=== PATIENT | male | born 1945 | race Caucasian/White ===

== ENCOUNTER 2020-06-13 15:20 | Inpatient (IN) ==
[2020-06-13] MEDS ORDERED: Ondansetron 4 MG/2 ML VIAL IVP PRN (18:44)
[2020-06-13] MEDS ORDERED: *HR* Promethazine 25 MG/ML VIAL IVP PRN (18:44)
[2020-06-13] MEDS ORDERED: Naloxone 0.4 MG/ML INJ IVP PRN (18:44)
[2020-06-13] MEDS ORDERED: 0.9 % Sodium Chloride 1,000 ML IVC SCH (18:45)
[2020-06-13] MEDS ORDERED: *HR* HYDROmorphone PF 0.5 MG/0.5 ML SYRINGE IVP PRN (19:28)
[2020-06-13 20:26] LABS: Prothrombin Time 11.4 Seconds (9.4-12.1)
[2020-06-13 20:35] LABS: Basophils % 0.2 %; Hematocrit 37.7 % (37.5-50.1); Hemoglobin 12.3 g/dL (12.9-16.9); Immature Granulocytes % 1.1 % (0-4); Lymphocytes # 0.6 K/mcL (0.6-4.6); Lymphocytes % 5.7 %; Mean Corpuscular HGB Conc 32.6 g/dL (31.6-35.5); Mean Corpuscular Hemoglobin 30.8 pg (28.0-33.3); Mean Corpuscular Volume 94.3 fL (83.0-100.0); Mean Platelet Volume 11.6 fL (9.4-12.4); Monocytes # 0.8 K/mcL (0.0-1.3); Monocytes % 7.3 %; Neutrophils # 9.4 K/mcL (1.6-8.9); Platelet Count 121 K/mcL (140-400); Red Cell Distribution Width 15.5 % (11.5-14.5); Segmented Neutrophils % 85.7 %
[2020-06-13 20:52] LABS: Alanine Aminotransferase 90 Units/L (7-52); Albumin 3.6 g/dL (3.5-5.7); Alkaline Phosphatase 345 Units/L (34-104); Aspartate Amino Transferase 84 Units/L (13-39); BUN/Creatinine Ratio 17 (6-26); Blood Urea Nitrogen 58 mg/dL (8-23); Calcium 9.3 mg/dL (8.6-10.3); Carbon Dioxide 21 mEq/L (23-29); Chloride 97 mEq/L (98-107); Chol/HDL Ratio 3.3 (0-4.9); Cholesterol 111 mg/dL (< 200); Ethanol < 10 mg/dL (Less than 10); Globulin 3.5 g/dL (2.4-3.5); Glucose 78 mg/dL (70-105); HDL Cholesterol 34 mg/dL (40-59); LDL Cholesterol,Calculated 56 mg/dL (< 100); Magnesium 1.9 mg/dL (1.6-2.6); Osmolality,Calculated 289 (280-300); Potassium 4.4 mEq/L (3.5-5.1); Sodium 132 mEq/L (136-145); Total Protein 7.1 g/dL (6.4-8.9); Triglycerides 104 mg/dL (< 150); Troponin I 0.13 ng/mL (< 0.04); eGFR For African Americans 21 (> 60); eGFR For Non-African Americans 18 (> 60)
[2020-06-13] MEDS: carvediloL 25 MG TABLET PO SCH (22:32)
[2020-06-14 03:28] LABS: Basophils % 0.1 %; Eosinophils % 0.2 %; Hematocrit 35.4 % (37.5-50.1); Hemoglobin 11.5 g/dL (12.9-16.9); Immature Granulocytes % 1.1 % (0-4); Lymphocytes # 0.8 K/mcL (0.6-4.6); Lymphocytes % 7.9 %; Mean Corpuscular HGB Conc 32.5 g/dL (31.6-35.5); Mean Corpuscular Hemoglobin 30.8 pg (28.0-33.3); Mean Corpuscular Volume 94.9 fL (83.0-100.0); Mean Platelet Volume 11.5 fL (9.4-12.4); Monocytes # 0.7 K/mcL (0.0-1.3); Monocytes % 6.5 %; Neutrophils # 8.4 K/mcL (1.6-8.9); Platelet Count 127 K/mcL (140-400); Red Blood Count 3.73 M/mcL (4.19-5.50); Red Cell Distribution Width 15.7 % (11.5-14.5); Segmented Neutrophils % 84.2 %
[2020-06-14 03:46] LABS: Calcium 9.3 mg/dL (8.6-10.3); Potassium 4.5 mEq/L (3.5-5.1)
[2020-06-14 03:49] LABS: Albumin 3.4 g/dL (3.5-5.7); Bilirubin,Direct 1.7 mg/dL (0.0-0.2); Bilirubin,Indirect 1.3 mg/dL (0.0-1.0); Globulin 3.5 g/dL (2.4-3.5); Total Protein 6.9 g/dL (6.4-8.9)
[2020-06-14] MEDS: *HR* Heparin 5,000 UNIT/ML VIAL SQ SCH ×2 (06:07→19:17)
[2020-06-14] MEDS: calcitrioL 0.25 MCG CAPSULE PO SCH (08:20)
[2020-06-14] MEDS: allopurinoL 100 MG TABLET PO SCH (08:21)
[2020-06-14] MEDS: carvediloL 25 MG TABLET PO SCH ×2 (08:21→20:25)
[2020-06-14] MEDS: Cholecalciferol (D-3) 1,000 UNIT (25MCG) TABLET PO SCH ×2 (08:21→08:39)
[2020-06-14] MEDS: Aspirin 81 MG TAB.CHEW PO SCH (08:21)
[2020-06-14] MEDS: 0.9 % Sodium Chloride 1,000 ML IVC SCH (11:37)
[2020-06-14 19:47] LABS: Hematocrit 34.2 % (37.5-50.1); Mean Corpuscular HGB Conc 32.2 g/dL (31.6-35.5); Mean Corpuscular Hemoglobin 30.7 pg (28.0-33.3); Mean Corpuscular Volume 95.5 fL (83.0-100.0); Mean Platelet Volume 11.4 fL (9.4-12.4); Platelet Count 132 K/mcL (140-400); Red Blood Count 3.58 M/mcL (4.19-5.50); Red Cell Distribution Width 15.6 % (11.5-14.5); White Blood Count 11.5 K/mcL (4.3-11.1)
[2020-06-15 00:26] LABS: Amorphous Sediment,Urine Few per hpf (None-Few); Bacteria,Urine Few per hpf (None-Few); Bilirubin,Urine Small (Negative); Blood,Urine Negative (Negative); Clarity,Urine Turbid (Clear); Color,Urine Yellow (Yellow); Glucose,Urine (UA) Normal (Normal); Hyaline Casts,Urine Few per lpf (None Seen); Ketones,Urine Negative (Negative); Leukocyte Esterase,Urine Negative (Negative); Mucus,Urine Few per lpf (None-Few); Nitrite,Urine Negative (Negative); PH,Urine 5.5 pH Units (5.0-8.0); Protein,Urine 30 mg/dL (Neg-Trace); Specific Gravity,Urine 1.019 (1.010-1.025); Squamous Epithelial Cell,Urine Few per hpf (None-Few)
[2020-06-15] MEDS: *HR* Heparin 5,000 UNIT/ML VIAL SQ SCH ×2 (05:46→18:56)
[2020-06-15 07:09] LABS: Calcium 8.8 mg/dL (8.6-10.3); Potassium 4.7 mEq/L (3.5-5.1)
[2020-06-15] MEDS: Aspirin 81 MG TAB.CHEW PO SCH (08:27)
[2020-06-15] MEDS: carvediloL 25 MG TABLET PO SCH ×2 (08:28→16:04)
[2020-06-15] MEDS: allopurinoL 100 MG TABLET PO SCH (08:28)
[2020-06-15] MEDS: Cholecalciferol (D-3) 1,000 UNIT (25MCG) TABLET PO SCH (08:35)
[2020-06-15] MEDS: 0.9 % Sodium Chloride 1,000 ML IVC SCH (08:35)
[2020-06-15] MEDS: calcitrioL 0.25 MCG CAPSULE PO SCH (08:46)
[2020-06-15 13:45] LABS: Sodium, Urine 17.5 mEq/L
[2020-06-15] MEDS ORDERED: Ipratropium/Albuterol Neb 3 ML IH PRN (14:50)
[2020-06-15 16:15] LABS: Hematocrit 33.4 % (37.5-50.1); Hemoglobin 10.7 g/dL (12.9-16.9); Mean Corpuscular Volume 96.8 fL (83.0-100.0); Mean Platelet Volume 11.4 fL (9.4-12.4); Platelet Count 133 K/mcL (140-400); Red Blood Count 3.45 M/mcL (4.19-5.50); Red Cell Distribution Width 15.6 % (11.5-14.5)
[2020-06-15] MEDS: Levalbuterol Neb 1.25 MG/3 ML IH SCH ×2 (20:26→23:04)
[2020-06-16] MEDS: 0.9 % Sodium Chloride 1,000 ML IVC SCH ×2 (00:35→12:41)
[2020-06-16] MEDS: Levalbuterol Neb 1.25 MG/3 ML IH SCH ×5 (03:26→20:23)
[2020-06-16] MEDS: *HR* Heparin 5,000 UNIT/ML VIAL SQ SCH ×2 (05:44→20:22)
[2020-06-16 06:53] LABS: Hematocrit 32.5 % (37.5-50.1); Hemoglobin 10.6 g/dL (12.9-16.9); Mean Corpuscular HGB Conc 32.6 g/dL (31.6-35.5); Mean Corpuscular Hemoglobin 30.6 pg (28.0-33.3); Mean Corpuscular Volume 93.9 fL (83.0-100.0); Mean Platelet Volume 11.8 fL (9.4-12.4); Platelet Count 141 K/mcL (140-400); Red Blood Count 3.46 M/mcL (4.19-5.50); Red Cell Distribution Width 15.4 % (11.5-14.5); White Blood Count 10.1 K/mcL (4.3-11.1)
[2020-06-16 07:07] LABS: Calcium 8.6 mg/dL (8.6-10.3); Potassium 4.6 mEq/L (3.5-5.1)
[2020-06-16] MEDS ORDERED: Perflutren Lipid Microsphere 1.3 ML in 0.9 % Sodium Chloride 8.7 ML IVP PRN (11:08)
[2020-06-16] MEDS: Cholecalciferol (D-3) 1,000 UNIT (25MCG) TABLET PO SCH (11:56)
[2020-06-16] MEDS: Aspirin 81 MG TAB.CHEW PO SCH (11:56)
[2020-06-16] MEDS: Sennosides/Docusate Sodium TABLET PO SCH (11:57)
[2020-06-16] MEDS: calcitrioL 0.25 MCG CAPSULE PO SCH (11:57)
[2020-06-16] MEDS: carvediloL 25 MG TABLET PO SCH ×2 (11:57→18:11)
[2020-06-16] MEDS: allopurinoL 100 MG TABLET PO SCH (12:24)
[2020-06-16] MEDS ORDERED: 0.9 % Sodium Chloride 1,000 ML IVC SCH (12:45)
[2020-06-16] MEDS ORDERED: Sodium Bicarbonate 75 MEQ in 0.45 % Sodium Chloride 1,000 ML IVC SCH (13:45)
[2020-06-16 15:04] LABS: Basophils % 0.2 %; Eosinophils # 0.2 K/mcL (0.0-0.6); Eosinophils % 1.5 %; Hematocrit 34.7 % (37.5-50.1); Hemoglobin 10.9 g/dL (12.9-16.9); Lymphocytes # 0.9 K/mcL (0.6-4.6); Lymphocytes % 8.6 %; Mean Corpuscular HGB Conc 31.4 g/dL (31.6-35.5); Mean Corpuscular Hemoglobin 30.1 pg (28.0-33.3); Mean Corpuscular Volume 95.9 fL (83.0-100.0); Mean Platelet Volume 11.9 fL (9.4-12.4); Monocytes # 0.6 K/mcL (0.0-1.3); Monocytes % 5.9 %; Neutrophils # 8.4 K/mcL (1.6-8.9); Platelet Count 136 K/mcL (140-400); Red Blood Count 3.62 M/mcL (4.19-5.50); Red Cell Distribution Width 15.3 % (11.5-14.5); Segmented Neutrophils % 82.8 %; White Blood Count 10.1 K/mcL (4.3-11.1)
[2020-06-16 15:11] LABS: INR 1.1; Prothrombin Time 12.1 Seconds (9.4-12.1)
[2020-06-16 15:27] LABS: Albumin 3.4 g/dL (3.5-5.7); Bilirubin,Direct 1.4 mg/dL (0.0-0.2); Bilirubin,Indirect 1.4 mg/dL (0.0-1.0); Bilirubin,Total 2.8 mg/dL (0.3-1.0); Globulin 3.5 g/dL (2.4-3.5); Total Protein 6.9 g/dL (6.4-8.9)
[2020-06-16] MEDS: Piperacillin/Tazobactam 3.375 GM in 0.9 % Sodium Chloride Mini Bag 100 ML IVPB SCH (20:21)
[2020-06-16 22:50] LABS: Protein/Creatinine Ratio,Urine 0.23 mg/mg (0.00-0.20)
[2020-06-16 22:51] LABS: Sodium, Urine 15.3 mEq/L
[2020-06-16] MEDS ORDERED: Benzonatate 100 MG CAPSULE PO PRN (23:30)
[2020-06-16] MEDS ORDERED: Melatonin 3 MG TABLET PO PRN (23:30)
[2020-06-17] MEDS: Levalbuterol Neb 1.25 MG/3 ML IH SCH ×7 (00:28→23:59)
[2020-06-17] MEDS: *HR* Heparin 5,000 UNIT/ML VIAL SQ SCH ×3 (05:22→19:59)
[2020-06-17] MEDS: Piperacillin/Tazobactam 3.375 GM in 0.9 % Sodium Chloride Mini Bag 100 ML IVPB SCH ×2 (05:23→16:29)
[2020-06-17 05:52] LABS: Hematocrit 31.7 % (37.5-50.1); Hemoglobin 10.4 g/dL (12.9-16.9); Mean Corpuscular HGB Conc 32.8 g/dL (31.6-35.5); Mean Corpuscular Hemoglobin 31.1 pg (28.0-33.3); Mean Corpuscular Volume 94.9 fL (83.0-100.0); Mean Platelet Volume 11.2 fL (9.4-12.4); Platelet Count 164 K/mcL (140-400); Red Blood Count 3.34 M/mcL (4.19-5.50); Red Cell Distribution Width 15.2 % (11.5-14.5); White Blood Count 12.7 K/mcL (4.3-11.1)
[2020-06-17 06:16] LABS: Calcium 8.7 mg/dL (8.6-10.3); Potassium 4.7 mEq/L (3.5-5.1)
[2020-06-17 06:36] LABS: Folate 10.4 ng/mL (3.0-16.0)
[2020-06-17 06:37] LABS: Vitamin B12 462 pg/mL (250-1100)
[2020-06-17 07:10] LABS: Hepatitis B Surface Antigen Nonreactive (Nonreactive)
[2020-06-17 07:39] LABS: Hepatitis A Antibody IgM Nonreactive (Nonreactive); Hepatitis B Core IgM Nonreactive (Nonreactive); Hepatitis C Virus Antibody Nonreactive (Nonreactive)
[2020-06-17] MEDS: Cholecalciferol (D-3) 1,000 UNIT (25MCG) TABLET PO SCH (07:57)
[2020-06-17] MEDS: Sennosides/Docusate Sodium TABLET PO SCH (07:57)
[2020-06-17] MEDS: Aspirin 81 MG TAB.CHEW PO SCH (07:57)
[2020-06-17] MEDS: allopurinoL 100 MG TABLET PO SCH (07:57)
[2020-06-17] MEDS: carvediloL 25 MG TABLET PO SCH ×2 (07:57→16:29)
[2020-06-17] MEDS ORDERED: methylPREDNISolone 125 MG/2 ML VIAL IVP ONE (10:39)
[2020-06-18] MEDS: Levalbuterol Neb 1.25 MG/3 ML IH SCH ×6 (03:43→23:59)
[2020-06-18] MEDS: Piperacillin/Tazobactam 3.375 GM in 0.9 % Sodium Chloride Mini Bag 100 ML IVPB SCH ×2 (05:16→16:39)
[2020-06-18] MEDS: *HR* Heparin 5,000 UNIT/ML VIAL SQ SCH ×3 (05:17→20:50)
[2020-06-18 05:45] LABS: Hematocrit 30.7 % (37.5-50.1); Hemoglobin 10.2 g/dL (12.9-16.9); Mean Corpuscular HGB Conc 33.2 g/dL (31.6-35.5); Mean Corpuscular Hemoglobin 31.1 pg (28.0-33.3); Mean Corpuscular Volume 93.6 fL (83.0-100.0); Mean Platelet Volume 11.1 fL (9.4-12.4); Platelet Count 161 K/mcL (140-400); Red Blood Count 3.28 M/mcL (4.19-5.50); White Blood Count 8.5 K/mcL (4.3-11.1)
[2020-06-18 05:50] LABS: INR 1.1; Prothrombin Time 12.8 Seconds (9.4-12.1)
[2020-06-18 06:05] LABS: Albumin 3.1 g/dL (3.5-5.7); Albumin/Globulin Ratio 0.9 (1.1-2.2); Bilirubin,Total 1.8 mg/dL (0.3-1.0); Calcium 8.7 mg/dL (8.6-10.3); Globulin 3.6 g/dL (2.4-3.5); Potassium 5.2 mEq/L (3.5-5.1); Total Protein 6.7 g/dL (6.4-8.9)
[2020-06-18] MEDS: Sennosides/Docusate Sodium TABLET PO SCH (08:13)
[2020-06-18] MEDS: Cholecalciferol (D-3) 1,000 UNIT (25MCG) TABLET PO SCH (08:13)
[2020-06-18] MEDS: Aspirin 81 MG TAB.CHEW PO SCH (08:13)
[2020-06-18] MEDS: allopurinoL 100 MG TABLET PO SCH (08:13)
[2020-06-18] MEDS: carvediloL 25 MG TABLET PO SCH ×2 (08:13→16:39)
[2020-06-19] MEDS: Levalbuterol Neb 1.25 MG/3 ML IH SCH ×6 (03:40→23:06)
[2020-06-19 04:52] LABS: Hematocrit 30.8 % (37.5-50.1); Hemoglobin 9.9 g/dL (12.9-16.9); Mean Corpuscular HGB Conc 32.1 g/dL (31.6-35.5); Mean Corpuscular Volume 93.3 fL (83.0-100.0); Mean Platelet Volume 10.6 fL (9.4-12.4); Platelet Count 192 K/mcL (140-400); Red Cell Distribution Width 15.4 % (11.5-14.5); White Blood Count 11.9 K/mcL (4.3-11.1)
[2020-06-19 04:56] LABS: Prothrombin Time 11.8 Seconds (9.4-12.1)
[2020-06-19 05:09] LABS: Albumin/Globulin Ratio 0.9 (1.1-2.2); Bilirubin,Total 1.5 mg/dL (0.3-1.0); Calcium 8.6 mg/dL (8.6-10.3); Globulin 3.3 g/dL (2.4-3.5); Potassium 5.7 mEq/L (3.5-5.1); Total Protein 6.3 g/dL (6.4-8.9)
[2020-06-19] MEDS ORDERED: Piperacillin/Tazobactam 3.375 GM VIAL ONE (06:15)
[2020-06-19] MEDS: Piperacillin/Tazobactam 3.375 GM in 0.9 % Sodium Chloride Mini Bag 100 ML IVPB SCH ×2 (06:17→17:59)
[2020-06-19] MEDS: *HR* Heparin 5,000 UNIT/ML VIAL SQ SCH ×3 (06:17→22:37)
[2020-06-19] MEDS ORDERED: 0.9 % Sodium Chloride 250 ML IVC PRN (07:33)
[2020-06-19] MEDS ORDERED: 0.9 % Sodium Chloride 1,000 ML PRIME SCH (07:45)
[2020-06-19] MEDS: Sennosides/Docusate Sodium TABLET PO SCH (08:13)
[2020-06-19] MEDS: carvediloL 25 MG TABLET PO SCH ×2 (08:13→17:59)
[2020-06-19] MEDS: Aspirin 81 MG TAB.CHEW PO SCH (08:14)
[2020-06-19] MEDS: allopurinoL 100 MG TABLET PO SCH (08:14)
[2020-06-19] MEDS: Cholecalciferol (D-3) 1,000 UNIT (25MCG) TABLET PO SCH (08:19)
[2020-06-19] MEDS: calcitrioL 0.25 MCG CAPSULE PO SCH (08:20)
[2020-06-19] MEDS ORDERED: Lidocaine/EPI 1:100k 1% 50 ML VIAL ONE (10:06)
[2020-06-19] MEDS ORDERED: Heparin 1,000 UNITS/500 mL 500 ML ONE (10:06)
[2020-06-19] MEDS ORDERED: *HR* Heparin 5,000 UNIT/ML VIAL ONE (10:36)
[2020-06-19] MEDS ORDERED: *HR* Heparin 10,000 UNIT/10 ML VIAL IV PRN (11:19)
[2020-06-19 11:38] LABS: Phosphorous 5.4 mg/dL (2.7-4.5)
[2020-06-20] MEDS: Levalbuterol Neb 1.25 MG/3 ML IH SCH ×6 (03:16→23:15)
[2020-06-20] MEDS: *HR* Heparin 5,000 UNIT/ML VIAL SQ SCH ×3 (05:59→22:07)
[2020-06-20] MEDS: Piperacillin/Tazobactam 3.375 GM in 0.9 % Sodium Chloride Mini Bag 100 ML IVPB SCH ×2 (05:59→16:59)
[2020-06-20 06:11] LABS: Hemoglobin 10.3 g/dL (12.9-16.9); Mean Corpuscular HGB Conc 32.2 g/dL (31.6-35.5); Mean Corpuscular Hemoglobin 30.5 pg (28.0-33.3); Mean Corpuscular Volume 94.7 fL (83.0-100.0); Mean Platelet Volume 10.6 fL (9.4-12.4); Platelet Count 218 K/mcL (140-400); Red Blood Count 3.38 M/mcL (4.19-5.50); Red Cell Distribution Width 15.8 % (11.5-14.5)
[2020-06-20 06:13] LABS: INR 1.1; Prothrombin Time 12.3 Seconds (9.4-12.1)
[2020-06-20 06:32] LABS: Albumin/Globulin Ratio 0.9 (1.1-2.2); Bilirubin,Total 1.5 mg/dL (0.3-1.0); Calcium 8.6 mg/dL (8.6-10.3); Globulin 3.2 g/dL (2.4-3.5); Potassium 5.2 mEq/L (3.5-5.1); Total Protein 6.2 g/dL (6.4-8.9)
[2020-06-20] MEDS ORDERED: 0.9 % Sodium Chloride 250 ML IVC PRN (07:25)
[2020-06-20] MEDS: Cholecalciferol (D-3) 1,000 UNIT (25MCG) TABLET PO SCH (08:13)
[2020-06-20] MEDS: carvediloL 25 MG TABLET PO SCH ×2 (08:13→16:59)
[2020-06-20] MEDS: allopurinoL 100 MG TABLET PO SCH (08:13)
[2020-06-20] MEDS: Aspirin 81 MG TAB.CHEW PO SCH (08:13)
[2020-06-21] MEDS: Levalbuterol Neb 1.25 MG/3 ML IH SCH ×5 (03:25→20:59)
[2020-06-21] MEDS: Piperacillin/Tazobactam 3.375 GM in 0.9 % Sodium Chloride Mini Bag 100 ML IVPB SCH ×2 (06:26→17:22)
[2020-06-21] MEDS: *HR* Heparin 5,000 UNIT/ML VIAL SQ SCH ×3 (06:27→21:01)
[2020-06-21 06:58] LABS: Hematocrit 30.9 % (37.5-50.1); Mean Corpuscular HGB Conc 32.4 g/dL (31.6-35.5); Mean Corpuscular Hemoglobin 30.5 pg (28.0-33.3); Mean Corpuscular Volume 94.2 fL (83.0-100.0); Mean Platelet Volume 10.4 fL (9.4-12.4); Platelet Count 189 K/mcL (140-400); Red Blood Count 3.28 M/mcL (4.19-5.50); Red Cell Distribution Width 15.9 % (11.5-14.5); White Blood Count 14.4 K/mcL (4.3-11.1)
[2020-06-21 07:15] LABS: Calcium 8.6 mg/dL (8.6-10.3); Potassium 4.5 mEq/L (3.5-5.1)
[2020-06-21] MEDS: carvediloL 25 MG TABLET PO SCH ×2 (07:49→17:22)
[2020-06-21] MEDS: allopurinoL 100 MG TABLET PO SCH (07:49)
[2020-06-21] MEDS: Aspirin 81 MG TAB.CHEW PO SCH (07:49)
[2020-06-21] MEDS: Cholecalciferol (D-3) 1,000 UNIT (25MCG) TABLET PO SCH (07:49)
[2020-06-21] MEDS: calcitrioL 0.25 MCG CAPSULE PO SCH (07:50)
[2020-06-21 09:37] LABS: Magnesium 1.8 mg/dL (1.6-2.6); Phosphorous 2.9 mg/dL (2.7-4.5)
[2020-06-21] MEDS ORDERED: Magnesium Sulfate 1 GM/102 ML PIGGYBACK IVPB ONE (10:05)
[2020-06-22] MEDS: Levalbuterol Neb 1.25 MG/3 ML IH SCH ×4 (00:08→11:39)
[2020-06-22 03:40] LABS: Hematocrit 31.7 % (37.5-50.1); Hemoglobin 10.1 g/dL (12.9-16.9); Mean Corpuscular HGB Conc 31.9 g/dL (31.6-35.5); Mean Corpuscular Hemoglobin 30.4 pg (28.0-33.3); Mean Corpuscular Volume 95.5 fL (83.0-100.0); Mean Platelet Volume 10.8 fL (9.4-12.4); Platelet Count 189 K/mcL (140-400); Red Blood Count 3.32 M/mcL (4.19-5.50); Red Cell Distribution Width 15.9 % (11.5-14.5); White Blood Count 14.3 K/mcL (4.3-11.1)
[2020-06-22 03:54] LABS: Magnesium 1.9 mg/dL (1.6-2.6); Phosphorous 2.8 mg/dL (2.7-4.5)
[2020-06-22 03:55] LABS: Calcium 8.8 mg/dL (8.6-10.3); Potassium 4.6 mEq/L (3.5-5.1)
[2020-06-22] MEDS: *HR* Heparin 5,000 UNIT/ML VIAL SQ SCH ×3 (05:40→20:31)
[2020-06-22] MEDS: Piperacillin/Tazobactam 3.375 GM in 0.9 % Sodium Chloride Mini Bag 100 ML IVPB SCH ×2 (05:40→17:42)
[2020-06-22] MEDS: Cholecalciferol (D-3) 1,000 UNIT (25MCG) TABLET PO SCH (08:43)
[2020-06-22] MEDS: carvediloL 25 MG TABLET PO SCH ×2 (08:43→15:57)
[2020-06-22] MEDS: allopurinoL 100 MG TABLET PO SCH (08:43)
[2020-06-22] MEDS: Aspirin 81 MG TAB.CHEW PO SCH (08:44)
[2020-06-22] MEDS: Benzonatate 100 MG CAPSULE PO SCH ×2 (14:39→20:31)
[2020-06-22] MEDS: Budesonide/Formoterol 80/4.5 1 PUFF INH IH SCH ×2 (15:24→22:15)
[2020-06-22] MEDS: Ipratropium/Albuterol Neb 3 ML IH SCH ×2 (15:29→22:15)
[2020-06-22 15:37] LABS: Amorphous Sediment,Urine Few per hpf (None-Few); Bilirubin,Urine Negative (Negative); Blood,Urine Negative (Negative); Clarity,Urine Clear (Clear); Color,Urine Light-Yellow (Yellow); Glucose,Urine (UA) Normal (Normal); Ketones,Urine Negative (Negative); Leukocyte Esterase,Urine Negative (Negative); Mucus,Urine Few per lpf (None-Few); Nitrite,Urine Negative (Negative); PH,Urine 5.5 pH Units (5.0-8.0); Protein,Urine 30 mg/dL (Neg-Trace); RBC,Urine 0-3 per hpf (0-3); Specific Gravity,Urine 1.017 (1.010-1.025); Urobilinogen,Urine Normal (Normal); WBC,Urine 0-3 per hpf (0-3)
[2020-06-23] MEDS: Ipratropium/Albuterol Neb 3 ML IH SCH ×2 (03:28→10:27)
[2020-06-23] MEDS: Piperacillin/Tazobactam 3.375 GM in 0.9 % Sodium Chloride Mini Bag 100 ML IVPB SCH (06:02)
[2020-06-23] MEDS: *HR* Heparin 5,000 UNIT/ML VIAL SQ SCH (06:02)
[2020-06-23 06:29] LABS: Hematocrit 31.1 % (37.5-50.1); Mean Corpuscular HGB Conc 32.2 g/dL (31.6-35.5); Mean Corpuscular Hemoglobin 31.3 pg (28.0-33.3); Mean Corpuscular Volume 97.2 fL (83.0-100.0); Platelet Count 196 K/mcL (140-400); Red Cell Distribution Width 15.8 % (11.5-14.5); White Blood Count 13.3 K/mcL (4.3-11.1)
[2020-06-23 06:41] VITALS: BP 124/75
[2020-06-23 06:42] LABS: Magnesium 1.8 mg/dL (1.6-2.6); Phosphorous 2.8 mg/dL (2.7-4.5); Potassium 5.1 mEq/L (3.5-5.1)
[2020-06-23] MEDS: carvediloL 25 MG TABLET PO SCH (08:17)
[2020-06-23] MEDS: Cholecalciferol (D-3) 1,000 UNIT (25MCG) TABLET PO SCH (08:18)
[2020-06-23] MEDS: Benzonatate 100 MG CAPSULE PO SCH (08:18)
[2020-06-23] MEDS: allopurinoL 100 MG TABLET PO SCH (08:18)
[2020-06-23] MEDS: Aspirin 81 MG TAB.CHEW PO SCH (08:18)
[2020-06-23] MEDS: calcitrioL 0.25 MCG CAPSULE PO SCH ×2 (08:23→08:27)
[2020-06-23] MEDS: Budesonide/Formoterol 80/4.5 1 PUFF INH IH SCH (10:27)
== END 2020-06-23 12:51 | disposition home health service (06) | DRG 871 ==
LOC: EMEROOARM 15:20 → 3ANU 15:20 → SUATTDRO 19:19 → 3ANU 20:08 → SUATTDRO 06-15 17:54 → 2NNU 06-16 18:21 → 2ANU 06-22 13:01
PROVIDERS: ADMIT Internal Medicine; ATTEND Internal Medicine